=== PATIENT | male | born 1980 | race Two or more races ===

== ENCOUNTER 2024-05-23 09:01 | Emergency (ER) | payer OTHER ==
[~2024-05-23] VITALS: Ht 185.4 cm; Wt 111.8 kg
[2024-05-23 09:49] LABS: Urine Bacteria None Seen /hpf (None Seen)
[2024-05-23 10:02] LABS: Urine Blood Negative /uL (Negative); Urine Clarity Clear (Clear); Urine Color Yellow (Yellow); Urine Protein, UAD 1+ (Negative); Urine Specific Gravity 1.021 (1.001-1.035); Urine Urobilinogen Normal (Negative); Urine WBC <1 /hpf (0 - 3)
[2024-05-23 10:26] LABS: Basophils # (auto) 0.1 10 ^3/uL (0-0.2); Basophils % (auto) 0.8 % (0.0-2.0); Eosinophils # (auto) 0.3 10 ^3/uL (0-0.8); Eosinophils % (auto) 1.9 % (0.0-7.0); Hematocrit 52.1 % (41.0-53.0); Hemoglobin 17.8 g/dL (13.5-17.5); Lymphocytes # (auto) 1.8 10 ^3/uL (0.4-5.4); Mean Corpuscular Hemoglobin 32.5 pg (28.0-32.0); Mean Corpuscular Hgb Conc. 34.1 g/dL (32.0-36.0); Mean Corpuscular Volume 95.3 fL (80.0-100.0); Monocytes % (auto) 7.4 % (0.0-12.0); Neutrophils # (auto) 10.7 10 ^3/uL (1.6-8.6); Neutrophils % (auto) 76.9 % (37.0-80.0); Platelet Count (auto) 265 10^3/uL (140-450); Red Blood Cells 5.47 10^6/uL (4.5-5.90); Red Cell Distribution Width 13.9 % (11.8-14.3)
[2024-05-23 10:39] LABS: Alanine Aminotransferase 80 U/L (7-40); Albumin 4.5 g/dL (3.2-4.8); Alkaline Phosphatase 43 U/L (46-116); Anion Gap 6 (5-15); Aspartate Aminotransferase 50 U/L (13-40); BUN/Creatinine Ratio 10.5 (10.0-20.0); Blood Urea Nitrogen 9 mg/dL (9-23); Calcium 9.3 mg/dL (8.7-10.4); Carbon Dioxide 23 mmol/L (20-30); Chloride 106 mmol/L (98-107); Glucose 105 mg/dL (74-106); Lipase 34 U/L (12-53); Potassium 4.5 mmol/L (3.5-5.1); Sodium 135 mmol/L (136-145)
[2024-05-23 10:40] LABS: Bilirubin, Total 0.7 mg/dL (0.2-1.0); Total Protein 7.2 g/dL (5.7-8.2)
[2024-05-23 12:15] VITALS: PULSE 65; RESP 16; TEMP 98.3; O2SAT 98
[2024-05-23] MEDS: SODIUM CHLORIDE 0.9% 1,000 ML IV ONE (12:51)
[2024-05-23] MEDS: KETOROLAC TROMETH 30 MG/ML 1ML VIAL IV ONE (12:52)
[2024-05-23] MEDS: levoFLOXacin 500MG 100 ML IV ONE (12:57)
[2024-05-23] MEDS: metroNIDAZOLE 500MG/100ML 100 ML IV ONE (12:59)
[2024-05-23] MEDS ORDERED: CIPR500T4 PO (15:05)
[2024-05-23] MEDS ORDERED: METR-344 PO (15:06)
[2024-05-23] MEDS ORDERED: NAP500T PO (15:07)
[2024-05-23] MEDS ORDERED: POLY335015 PO (15:09)
[2024-05-23 15:28] VITALS: BP 152/61; PULSE 64; RESP 16; O2SAT 99
== END 2024-05-23 15:35 | disposition admitted as inpatient to this hospital (09) ==
LOC: ER 09:01
DX: K57.32 Diverticulitis of large intestine without perforation or abscess without bleeding (principal); F15.90 Other stimulant use, unspecified, uncomplicated; Z98.890 Other specified postprocedural states
CPT/HCPCS: 36415; 74176; 80053; 81001; 83690; 85025; 93005; 96365; 96368; 96375; 99285; J1885; J1956; J3490